=== PATIENT | male | born 1960 | race Caucasian/White ===

== ENCOUNTER → 2016-09-12 | Outpatient (CLI) | payer OTHER, MEDICAID ==
[2016-09-12 10:38] LABS: Urine RBC None Seen /hpf (0 - 3)
[2016-09-12 10:39] LABS: Basophils # (auto) 0 uL; Basophils % (auto) 0.4 % (0.0-2.0); Eosinophils # (auto) 0.3 uL; Eosinophils % (auto) 2.7 % (0.0-7.0); Hematocrit 47.3 % (41.0-53.0); Hemoglobin 15.6 g/dL (13.5-17.5); Lymphocytes # (auto) 4.8 uL; Lymphocytes % (auto) 41.8 % (10.0-50.0); Mean Corpuscular Hemoglobin 28.8 pg (28.0-32.0); Mean Corpuscular Hgb Conc. 32.9 g/dL (32.0-36.0); Mean Corpuscular Volume 87.5 fL (80.0-100.0); Mean Platelet Volume 7.7 fL (7.4-10.4); Monocytes # (auto) 1.4 uL; Monocytes % (auto) 12.3 % (0.0-12.0); Neutrophils # (auto) 4.9 uL; Neutrophils % (auto) 42.8 % (37.0-80.0); Platelet Count (auto) 302 10^3/uL (140-450); Red Cell Distribution Width 14.2 % (11.6-16.0); White Blood Cell 11.5 10^3/uL (4.4-10.8)
[2016-09-12 10:52] LABS: Urine Bilirubin Negative (Negative); Urine Blood Negative /uL (Negative); Urine Color Yellow (Yellow); Urine Glucose Normal (Normal); Urine Hyaline Cast FEW /lpf (0 - 2); Urine Ketone Negative (Negative); Urine Nitrite Negative (Negative); Urine Squamous Epithelial Cell FEW /hpf (<5); Urine Urobilinogen Normal (Negative); Urine pH 5.5 (5.0-8.0)
[2016-09-12 11:05] LABS: Albumin 3.8 g/dL (3.4-5.0); BUN/Creatinine Ratio 16.4; Bilirubin, Total 0.6 mg/dL (0.2-1.0); Calcium 9.4 mg/dL (8.5-10.1); Potassium 4.3 mmol/L (3.5-5.1); Total Protein 8.2 g/dL (6.4-8.2)
== END | disposition home or self-care (01) ==
LOC: LAB 10:18
DX: E78.5 Hyperlipidemia, unspecified (principal); Z12.5 Encounter for screening for malignant neoplasm of prostate; Z85.048 Personal history of other malignant neoplasm of rectum, rectosigmoid junction, and anus
CPT/HCPCS: 36415; 80053; 80061; 81001; 84153; 84443; 85025

== ENCOUNTER 2016-10-23 13:27 | Inpatient (IN) | payer OTHER, MEDICAID, MEDICARE ==
[~2016-10-23] VITALS: Ht 182.9 cm; Wt 129.0 kg
[2016-10-23 14:25] LABS: Basophils # (auto) 0.1 uL; Basophils % (auto) 0.6 % (0.0-2.0); Eosinophils # (auto) 0.2 uL; Eosinophils % (auto) 1.6 % (0.0-7.0); Hematocrit 27.2 % (41.0-53.0); Lymphocytes # (auto) 2.9 uL; Lymphocytes % (auto) 25.6 % (10.0-50.0); Mean Corpuscular Hemoglobin 29.2 pg (28.0-32.0); Mean Corpuscular Hgb Conc. 33.2 g/dL (32.0-36.0); Mean Platelet Volume 8.1 fL (7.4-10.4); Monocytes # (auto) 0.9 uL; Monocytes % (auto) 7.7 % (0.0-12.0); Neutrophils # (auto) 7.2 uL; Neutrophils % (auto) 64.5 % (37.0-80.0); Platelet Count (auto) 258 10^3/uL (140-450); Red Cell Distribution Width 14.6 % (11.6-16.0); White Blood Cell 11.1 10^3/uL (4.4-10.8)
[2016-10-23 14:57] LABS: Albumin 3.3 g/dL (3.4-5.0); BUN/Creatinine Ratio 21.2; Bilirubin, Total 0.2 mg/dL (0.2-1.0); Calcium 8.5 mg/dL (8.5-10.1); Potassium 3.6 mmol/L (3.5-5.1); Total Protein 6.7 g/dL (6.4-8.2)
[2016-10-23 15:36] LABS: INR 0.96 (0.9-1.15); Partial Thromboplastin Time 22.7 sec (22.64-33.71); Prothrombin Time 10.4 sec (9.37-12.3)
[2016-10-23] MEDS ORDERED: SODIUM CHLORIDE 0.9% 1,000 ML IV ONE (22:30)
[2016-10-23] MEDS ORDERED: FAMOTIDINE (10MG/ML) 2ML VL IV ONE (22:30)
[2016-10-23 22:40] LABS: Basophils # (auto) 0.1 uL; Basophils % (auto) 0.6 % (0.0-2.0); DEFINITIVE VIEW TRANSMISSION; Eosinophils # (auto) 0.2 uL; Eosinophils % (auto) 1.4 % (0.0-7.0); Hematocrit 25.1 % (41.0-53.0); Hemoglobin 8.3 g/dL (13.5-17.5); Lymphocytes # (auto) 4.6 uL; Mean Corpuscular Hemoglobin 29.4 pg (28.0-32.0); Mean Corpuscular Hgb Conc. 33.2 g/dL (32.0-36.0); Mean Corpuscular Volume 88.8 fL (80.0-100.0); Mean Platelet Volume 7.9 fL (7.4-10.4); Monocytes # (auto) 1.3 uL; Monocytes % (auto) 10.3 % (0.0-12.0); Neutrophils # (auto) 6.6 uL; Neutrophils % (auto) 51.7 % (37.0-80.0); Platelet Count (auto) 257 10^3/uL (140-450); Red Cell Distribution Width 15.1 % (11.6-16.0); White Blood Cell 12.8 10^3/uL (4.4-10.8)
[2016-10-23 22:51] LABS: INR 0.97 (0.9-1.15); Prothrombin Time 10.5 sec (9.37-12.3)
[2016-10-23 22:59] LABS: Albumin 3.1 g/dL (3.4-5.0); Alkaline Phosphatase 58 U/L (45-117); Amylase 32 U/L (25-115); Anion Gap 11 (5-15); Aspartate Aminotransferase 21 U/L (15-37); BUN/Creatinine Ratio 18.9; Bilirubin, Total 0.3 mg/dL (0.2-1.0); Blood Urea Nitrogen 20 mg/dL (7-18); Calcium 8.4 mg/dL (8.5-10.1); Carbon Dioxide 24 mmol/L (21-32); Chloride 109 mmol/L (98-107); GFR African American 93 mL/min; GFR Non-African American 77 mL/min; Glucose 113 mg/dL (74-106); Potassium 3.6 mmol/L (3.5-5.1); Sodium 144 mmol/L (136-145); Total Protein 6.3 g/dL (6.4-8.2)
[2016-10-24] VITALS (9 sets, daily range): BP systolic 117–134; BP diastolic 59–86
[2016-10-24] MEDS ORDERED: cefTRIAXone 1GM/50ML D5W 50 ML IV ONE (04:30)
[2016-10-24] MEDS ORDERED: metroNIDAZOLE 500MG/100ML 100 ML IV ONE (04:30)
[2016-10-24] MEDS ORDERED: MORPHINE SULF INJ 2 MG/ML SYRINGE 1ML IV PRN ×2 (07:00)
[2016-10-24] MEDS ORDERED: PANTOPRAZOLE SODIUM 40 MG/10 ML VIAL IV ONE (07:00)
[2016-10-24] MEDS ORDERED: HYDROcodone-ACET 5/325MG TAB PO PRN (07:00)
[2016-10-24] MEDS ORDERED: PROCHLORPERAZINE EDISYLATE 5 MG/ML 2ML VIAL IV PRN (07:00)
[2016-10-24] MEDS ORDERED: ACETAMINOPHEN 500 MG TAB PO PRN (07:00)
[2016-10-24] MEDS ORDERED: NITROGLYCERIN 0.4 MG SL TAB SL PRN (07:00)
[2016-10-24] MEDS ORDERED: TEMAZEPAM 15 MG CAP PO PRN (07:00)
[2016-10-24] MEDS ORDERED: LORazepam 0.5 MG TAB PO PRN (07:00)
[2016-10-24] MEDS ORDERED: LACTULOSE 20Gm/30ML SOLN PO PRN (07:00)
[2016-10-24] MEDS: SODIUM CHLORIDE 0.9% 1,000 ML IV SCH ×3 (08:23→22:51)
[2016-10-24] MEDS: PANTOPRAZOLE SODIUM 40 MG/10 ML VIAL IV SCH (11:29)
[2016-10-24 12:24] LABS: Hematocrit 21.3 % (41.0-53.0); Hemoglobin 7.1 g/dL (13.5-17.5)
[2016-10-24] MEDS: metroNIDAZOLE 500MG/100ML 100 ML IV SCH ×2 (14:37→23:28)
[2016-10-24 20:24] LABS: Hematocrit 19.5 % (41.0-53.0)
[2016-10-24 20:38] LABS: Hemoglobin 6.6 g/dL (13.5-17.5)
[2016-10-24] MEDS ORDERED: FUROSEMIDE 20 MG/2 ML VIAL IV ONE (22:30)
[2016-10-25] VITALS (21 sets, daily range): BP systolic 111–165; BP diastolic 61–108
[2016-10-25] MEDS ORDERED: FUROSEMIDE 20 MG/2 ML VIAL IV ONE (03:30)
[2016-10-25] MEDS: metroNIDAZOLE 500MG/100ML 100 ML IV SCH ×3 (06:51→21:53)
[2016-10-25] MEDS: SODIUM CHLORIDE 0.9% 1,000 ML IV SCH ×3 (06:53→21:53)
[2016-10-25 07:12] LABS: Basophils # (auto) 0 uL; Basophils % (auto) 0.5 % (0.0-2.0); Eosinophils # (auto) 0.3 uL; Eosinophils % (auto) 3.2 % (0.0-7.0); Hematocrit 29.1 % (41.0-53.0); Hemoglobin 9.6 g/dL (13.5-17.5); Lymphocytes # (auto) 2.1 uL; Lymphocytes % (auto) 21.6 % (10.0-50.0); Mean Corpuscular Hemoglobin 28.6 pg (28.0-32.0); Mean Corpuscular Hgb Conc. 33.2 g/dL (32.0-36.0); Mean Corpuscular Volume 86.1 fL (80.0-100.0); Mean Platelet Volume 7.7 fL (7.4-10.4); Monocytes # (auto) 0.9 uL; Monocytes % (auto) 8.9 % (0.0-12.0); Neutrophils # (auto) 6.5 uL; Neutrophils % (auto) 65.8 % (37.0-80.0); Platelet Count (auto) 240 10^3/uL (140-450); Red Cell Distribution Width 16.1 % (11.6-16.0); White Blood Cell 9.9 10^3/uL (4.4-10.8)
[2016-10-25 07:30] LABS: Albumin 2.8 g/dL (3.4-5.0); Calcium 7.7 mg/dL (8.5-10.1); Potassium 3.5 mmol/L (3.5-5.1)
[2016-10-25 07:34] LABS: Bilirubin, Total 0.4 mg/dL (0.2-1.0); Total Protein 5.7 g/dL (6.4-8.2)
[2016-10-25] MEDS: PANTOPRAZOLE SODIUM 40 MG/10 ML VIAL IV SCH (09:19)
[2016-10-25] MEDS ORDERED: cloNIDine HCL 0.1 MG TAB PO PRN (13:00)
[2016-10-25] MEDS: Boost Glucose Control 8 Ounces PO SCH (17:37)
[2016-10-25 18:12] LABS: Hematocrit 29.5 % (41.0-53.0); Hemoglobin 9.7 g/dL (13.5-17.5)
[2016-10-25 23:34] LABS: Urine Bilirubin Negative (Negative); Urine Blood Negative /uL (Negative); Urine Color Yellow (Yellow); Urine Glucose Normal (Normal); Urine Ketone Negative (Negative); Urine Nitrite Negative (Negative); Urine RBC 1 /hpf (0 - 3); Urine Urobilinogen Normal (Negative)
[2016-10-26 05:00] VITALS: BP 156/116
[2016-10-26] MEDS: metroNIDAZOLE 500MG/100ML 100 ML IV SCH ×3 (05:33→22:25)
[2016-10-26 06:11] LABS: Basophils # (auto) 0 uL; Basophils % (auto) 0.3 % (0.0-2.0); Eosinophils # (auto) 0.2 uL; Eosinophils % (auto) 1.8 % (0.0-7.0); Hematocrit 29.8 % (41.0-53.0); Hemoglobin 9.9 g/dL (13.5-17.5); Lymphocytes # (auto) 2.2 uL; Lymphocytes % (auto) 20.7 % (10.0-50.0); Mean Corpuscular Hemoglobin 28.9 pg (28.0-32.0); Mean Corpuscular Hgb Conc. 33.2 g/dL (32.0-36.0); Mean Corpuscular Volume 87.1 fL (80.0-100.0); Mean Platelet Volume 7.6 fL (7.4-10.4); Monocytes # (auto) 0.9 uL; Monocytes % (auto) 8.6 % (0.0-12.0); Neutrophils # (auto) 7.3 uL; Neutrophils % (auto) 68.6 % (37.0-80.0); Platelet Count (auto) 267 10^3/uL (140-450); Red Cell Distribution Width 16.2 % (11.6-16.0); White Blood Cell 10.7 10^3/uL (4.4-10.8)
[2016-10-26 06:24] LABS: Calcium 8.2 mg/dL (8.5-10.1); Potassium 3.4 mmol/L (3.5-5.1)
[2016-10-26 06:27] LABS: BUN/Creatinine Ratio 6.4
[2016-10-26 06:29] LABS: Bilirubin, Total 0.4 mg/dL (0.2-1.0); Total Protein 6.1 g/dL (6.4-8.2)
[2016-10-26] MEDS: SODIUM CHLORIDE 0.9% 1,000 ML IV SCH ×3 (06:51→21:07)
[2016-10-26] MEDS: Boost Glucose Control 8 Ounces PO SCH ×3 (08:13→18:00)
[2016-10-26 08:46] VITALS: BP 140/88
[2016-10-26] MEDS: PANTOPRAZOLE SODIUM 40 MG/10 ML VIAL IV SCH (10:11)
[2016-10-26] MEDS ORDERED: POTASSIUM CHLORIDE 8 MEQ TAB PO ONE (12:15)
[2016-10-26 12:45] VITALS: BP 140/93
[2016-10-26] MEDS ORDERED: GOLYTELY 4L KIT PO ONE (13:30)
[2016-10-26 17:09] VITALS: BP 136/88
[2016-10-26 22:00] VITALS: BP 144/100
[2016-10-27 05:00] VITALS: BP 155/88
[2016-10-27] MEDS ORDERED: GOLYTELY 4L KIT PO ONE (06:00)
[2016-10-27] MEDS ORDERED: MAGNESIUM CITRATE SOLUTION 300 ML BTL PO ONE (06:00)
[2016-10-27 06:20] LABS: Basophils # (auto) 0 uL; Basophils % (auto) 0.4 % (0.0-2.0); Eosinophils # (auto) 0.2 uL; Eosinophils % (auto) 1.9 % (0.0-7.0); Hematocrit 30.9 % (41.0-53.0); Hemoglobin 10.1 g/dL (13.5-17.5); Lymphocytes % (auto) 23.8 % (10.0-50.0); Mean Corpuscular Hemoglobin 28.6 pg (28.0-32.0); Mean Corpuscular Hgb Conc. 32.7 g/dL (32.0-36.0); Mean Corpuscular Volume 87.6 fL (80.0-100.0); Mean Platelet Volume 7.2 fL (7.4-10.4); Monocytes # (auto) 0.9 uL; Neutrophils # (auto) 5.4 uL; Neutrophils % (auto) 62.9 % (37.0-80.0); Platelet Count (auto) 302 10^3/uL (140-450); Red Cell Distribution Width 16.5 % (11.6-16.0); White Blood Cell 8.5 10^3/uL (4.4-10.8)
[2016-10-27] MEDS: metroNIDAZOLE 500MG/100ML 100 ML IV SCH ×2 (06:26→14:15)
[2016-10-27] MEDS: SODIUM CHLORIDE 0.9% 1,000 ML IV SCH ×3 (06:51→22:56)
[2016-10-27 06:52] LABS: Albumin 2.9 g/dL (3.4-5.0); BUN/Creatinine Ratio 5.6; Bilirubin, Total 0.4 mg/dL (0.2-1.0); Calcium 8.3 mg/dL (8.5-10.1); Potassium 4.2 mmol/L (3.5-5.1); Total Protein 6.1 g/dL (6.4-8.2)
[2016-10-27 07:19] VITALS: BP 134/96
[2016-10-27 08:00] VITALS: BP 134/96
[2016-10-27] MEDS: Boost Glucose Control 8 Ounces PO SCH ×3 (08:00→18:00)
[2016-10-27] MEDS ORDERED: SODIUM CHLORIDE LOCK 10 ML ONE (08:13)
[2016-10-27] MEDS ORDERED: diphenhdrAMINE HCL 50 MG/1 ML VL ONE (08:13)
[2016-10-27] MEDS: PANTOPRAZOLE SODIUM 40 MG/10 ML VIAL IV SCH (10:12)
[2016-10-27] MEDS: fentaNYL CITRATE 100 MCG/2 ML VL ONE ×2 (11:16→11:20)
[2016-10-27] MEDS: MIDAZOLAM HCL 5 MG/ML-1ML VIAL ONE ×3 (11:16→11:25)
[2016-10-27] MEDS ORDERED: metroNIDAZOLE 500 MG TAB PO ONE (14:30)
[2016-10-27 16:27] VITALS: BP 130/80
[2016-10-27 20:00] VITALS: BP 134/77
[2016-10-27] MEDS: metroNIDAZOLE 500 MG TAB PO SCH (22:04)
[2016-10-28 05:40] VITALS: BP 131/84
[2016-10-28] MEDS: metroNIDAZOLE 500 MG TAB PO SCH (05:57)
[2016-10-28 06:15] LABS: Basophils # (auto) 0 uL; Basophils % (auto) 0.6 % (0.0-2.0); Eosinophils # (auto) 0.3 uL; Eosinophils % (auto) 3.8 % (0.0-7.0); Hematocrit 28.9 % (41.0-53.0); Hemoglobin 9.4 g/dL (13.5-17.5); Lymphocytes # (auto) 1.9 uL; Lymphocytes % (auto) 24.7 % (10.0-50.0); Mean Corpuscular Hemoglobin 28.6 pg (28.0-32.0); Mean Corpuscular Hgb Conc. 32.4 g/dL (32.0-36.0); Mean Corpuscular Volume 88.4 fL (80.0-100.0); Mean Platelet Volume 7.4 fL (7.4-10.4); Monocytes # (auto) 0.7 uL; Monocytes % (auto) 9.6 % (0.0-12.0); Neutrophils # (auto) 4.7 uL; Neutrophils % (auto) 61.3 % (37.0-80.0); Platelet Count (auto) 288 10^3/uL (140-450); Red Cell Distribution Width 16.8 % (11.6-16.0); White Blood Cell 7.6 10^3/uL (4.4-10.8)
[2016-10-28 06:31] LABS: Albumin 2.6 g/dL (3.4-5.0); BUN/Creatinine Ratio 11.2; Calcium 7.9 mg/dL (8.5-10.1); Potassium 3.9 mmol/L (3.5-5.1)
[2016-10-28 06:34] LABS: Bilirubin, Total 0.2 mg/dL (0.2-1.0); Total Protein 5.4 g/dL (6.4-8.2)
[2016-10-28] MEDS: SODIUM CHLORIDE 0.9% 1,000 ML IV SCH (06:51)
[2016-10-28 08:00] VITALS: BP_SYST 138; BP_SYST 159; BP_DIAS 90; BP_DIAS 94
[2016-10-28] MEDS ORDERED: LIDOCAINE VISCOUS 2% 15ML UD ONE (10:03)
[2016-10-28] MEDS ORDERED: SODIUM CHLORIDE LOCK 10 ML ONE (10:03)
[2016-10-28] MEDS ORDERED: fentaNYL CITRATE 100 MCG/2 ML VL ONE (10:04)
[2016-10-28] MEDS ORDERED: MIDAZOLAM HCL 5 MG/ML-1ML VIAL ONE (10:04)
[2016-10-28] MEDS ORDERED: diphenhdrAMINE HCL 50 MG/1 ML VL ONE (10:04)
[2016-10-28] MEDS: PANTOPRAZOLE SODIUM 40 MG/10 ML VIAL IV SCH (10:19)
[2016-10-28] MEDS: Boost Glucose Control 8 Ounces PO SCH ×2 (10:20→12:00)
[2016-10-28 11:21] VITALS: BP 140/84
[2016-10-28] MEDS ORDERED: MIDAZOLAM HCL 5 MG/ML-1ML VIAL IV ONE ×2 (11:56→11:59)
[2016-10-28] MEDS ORDERED: fentaNYL CITRATE 100 MCG/2 ML VL IV ONE ×2 (11:56→11:59)
[2016-10-28] MEDS ORDERED: LIDOCAINE VISCOUS 2% 15ML UD MT ONE (11:56)
[2016-10-28 14:06] VITALS: BP 139/96
[2016-10-28 14:15] VITALS: BP 139/96
[2016-10-28] MEDS ORDERED: PANTOPRAZOLE 40 MG TAB PO SCH (22:00)
== END 2016-10-28 14:45 | disposition home or self-care (01) | DRG 378 ==
LOC: ER 13:29 → TELE 13:30 → TELE-WESTW 10-24 10:44
PROVIDERS: ADMIT Internal Medicine; ATTEND Internal Medicine
PROC: 30233K1 Transfusion of Nonautologous Frozen Plasma into Peripheral Vein, Percutaneous Approach (ICD-10-PCS; principal; 2016-10-25)
PROC: 30233N1 Transfusion of Nonautologous Red Blood Cells into Peripheral Vein, Percutaneous Approach (ICD-10-PCS; 2016-10-25)
PROC: 0DJD8ZZ Inspection of Lower Intestinal Tract, Via Natural or Artificial Opening Endoscopic (ICD-10-PCS; 2016-10-27)
PROC: 0DB68ZX Excision of Stomach, Via Natural or Artificial Opening Endoscopic, Diagnostic (ICD-10-PCS; 2016-10-27)
DX: K26.4 Chronic or unspecified duodenal ulcer with hemorrhage (principal); E44.0 Moderate protein-calorie malnutrition; E11.21 Type 2 diabetes mellitus with diabetic nephropathy; E11.22 Type 2 diabetes mellitus with diabetic chronic kidney disease; E66.9 Obesity, unspecified; E86.0 Dehydration; I12.9 Hypertensive chronic kidney disease with stage 1 through stage 4 chronic kidney disease, or unspecified chronic kidney disease; J45.909 Unspecified asthma, uncomplicated; N18.2 Chronic kidney disease, stage 2 (mild); Z82.49 Family history of ischemic heart disease and other diseases of the circulatory system; Z83.3 Family history of diabetes mellitus; G89.29 Other chronic pain; M19.90 Unspecified osteoarthritis, unspecified site; E11.65 Type 2 diabetes mellitus with hyperglycemia; K40.20 Bilateral inguinal hernia, without obstruction or gangrene, not specified as recurrent; K76.89 Other specified diseases of liver; D72.829 Elevated white blood cell count, unspecified; Z68.38 Body mass index [BMI] 38.0-38.9, adult; K57.30 Diverticulosis of large intestine without perforation or abscess without bleeding; K64.8 Other hemorrhoids; D63.8 Anemia in other chronic diseases classified elsewhere; K29.70 Gastritis, unspecified, without bleeding
CPT/HCPCS: 36415; 36430; 43239; 45378; 71010; 74176; 80053; 80320; 81001; 82150; 82270; 82378; 83690; 85014; 85018; 85025; 85045; 85610; 85652; 85730; 86141; 86850; 86900; 86901; 86920; 87493; 96361; 96365; 96368; 96375; C9113; J0696; J2250; J3490

== ENCOUNTER → 2017-08-21 | Outpatient (CLI) | payer OTHER, MEDICAID, MEDICARE ==
[~2017-08-21] MED LIST: ALBUTEROL SULF 2.5 MG/0.5ML(0.5%) NEB SOLN ONE
== END | disposition home or self-care (01) ==
LOC: RT 08:28
PROVIDERS: ATTEND Internal Medicine Pulmonary Disease
DX: J45.998 Other asthma (principal)
CPT/HCPCS: 94060; 94640

== ENCOUNTER 2017-11-27 11:06 | Inpatient (IN) | payer OTHER, MEDICAID ==
[~2017-11-27] VITALS: Ht 182.9 cm; Wt 139.3 kg
[2017-11-27] MEDS ORDERED: SODIUM CHLORIDE 0.9% 1,000 ML IV ONE (11:28)
[2017-11-27] MEDS ORDERED: ALBUTEROL SULF 2.5 MG/0.5ML(0.5%) NEB SOLN HHN ONE (11:30)
[2017-11-27] MEDS ORDERED: methylPREDNISolone SOD SUCC 125 MG/2 ML VL IV ONE (11:30)
[2017-11-27] MEDS ORDERED: IPRATROPIUM BROM 0.5 MG/2.5ML INH SOL HHN ONE (11:30)
[2017-11-27 12:01] LABS: Basophils # (auto) 0.1 uL; Basophils % (auto) 0.7 % (0.0-2.0); Eosinophils # (auto) 0.3 uL; Eosinophils % (auto) 2.3 % (0.0-7.0); Hematocrit 47.2 % (41.0-53.0); Hemoglobin 15.4 g/dL (13.5-17.5); Lymphocytes # (auto) 2.2 uL; Mean Corpuscular Hgb Conc. 32.6 g/dL (32.0-36.0); Mean Corpuscular Volume 89.1 fL (80.0-100.0); Monocytes # (auto) 1.5 uL; Monocytes % (auto) 11.1 % (0.0-12.0); Neutrophils # (auto) 9.6 uL; Neutrophils % (auto) 69.9 % (37.0-80.0); Platelet Count (auto) 246 10^3/uL (140-450); Red Blood Cells 5.29 10^6/uL (4.5-5.90); Red Cell Distribution Width 14.9 % (11.8-14.3); White Blood Cell 13.8 10^3/uL (4.4-10.8)
[2017-11-27 12:18] LABS: Albumin 3.2 g/dL (3.4-5.0); BUN/Creatinine Ratio 9.2; Bilirubin, Total 0.6 mg/dL (0.2-1.0); Calcium 8.8 mg/dL (8.5-10.1); Magnesium 2.1 mg/dL (1.6-2.6); Potassium 5.3 mmol/L (3.5-5.1); Total Protein 8.4 g/dL (6.4-8.2)
[2017-11-27] MEDS ORDERED: NITROGLYCERIN 0.4 MG SL TAB SL PRN (12:30)
[2017-11-27] MEDS ORDERED: LACTULOSE 20Gm/30ML SOLN PO PRN (12:30)
[2017-11-27] MEDS ORDERED: ALBUTEROL SULF 2.5 MG/0.5ML(0.5%) NEB SOLN NEB PRN (12:30)
[2017-11-27] MEDS ORDERED: MORPHINE SULFATE 4 MG/ML SYR/VIAL IV PRN (12:30)
[2017-11-27] MEDS ORDERED: DEXTROSE (50%) 50ML SYRG IV PRN (12:30)
[2017-11-27] MEDS ORDERED: ACETAMINOPHEN 500 MG TAB PO PRN (12:30)
[2017-11-27] MEDS ORDERED: FUROSEMIDE 40 MG/4 ML VIAL IV ONE ×2 (12:45)
[2017-11-27] MEDS ORDERED: SODIUM POLYSTYRENE SULF 15GM/60ML SUSP PO ONE (12:45)
[2017-11-27] MEDS: cefTRIAXone 1GM/10ml IVPUSH 10 ML IV SCH (12:55)
[2017-11-27] MEDS: ACCU-CHEK COMFORT CURVE STRIP VI SCH ×3 (13:04→21:51)
[2017-11-27] MEDS: AZITHROMYCIN 500MG/ 250ML 250 ML IV SCH (13:04)
[2017-11-27 13:08] VITALS: BP 204/124
[2017-11-27] MEDS: InsuLIN REG 1unit/0.01ml Soln (100units/ml) SC SCH ×3 (13:11→21:52)
[2017-11-27] MEDS: ENOXAPARIN SOD 40 MG/0.4 ML SYRINGE SC SCH (13:12)
[2017-11-27] MEDS: CARVEDILOL 3.125 MG TAB PO SCH ×2 (13:13→21:44)
[2017-11-27 16:39] LABS: BUN/Creatinine Ratio 7.6; Calcium 8.9 mg/dL (8.5-10.1); Potassium 4.2 mmol/L (3.5-5.1)
[2017-11-27] MEDS: methylPREDNISolone SOD SUCC 40 MG/ML VL IV SCH (17:41)
[2017-11-27] MEDS: IPRATROPIUM BROM 0.5 MG/2.5ML INH SOL NEB SCH (18:00)
[2017-11-27 18:48] LABS: Urine Bacteria NONE SEEN /hpf (None Seen); Urine Blood Negative /uL (Negative); Urine Mucus FEW (None Seen); Urine Specific Gravity 1.009 (1.001-1.035); Urine Sperm PRESENT /hpf (None Seen); Urine WBC <1 /hpf (0 - 3)
[2017-11-27] MEDS: ALBUTEROL SULF 2.5 MG/0.5ML(0.5%) NEB SOLN NEB SCH (19:50)
[2017-11-28] MEDS: methylPREDNISolone SOD SUCC 40 MG/ML VL IV SCH ×3 (00:25→22:14)
[2017-11-28 01:19] VITALS: BP 131/84
[2017-11-28 04:00] VITALS: BP 125/82
[2017-11-28 06:09] LABS: Basophils # (auto) 0 uL; Basophils % (auto) 0.1 % (0.0-2.0); Eosinophils # (auto) 0 uL; Eosinophils % (auto) 0.1 % (0.0-7.0); Hematocrit 45.8 % (41.0-53.0); Hemoglobin 15.1 g/dL (13.5-17.5); Lymphocytes # (auto) 1.4 uL; Lymphocytes % (auto) 10.7 % (10.0-50.0); Mean Corpuscular Hemoglobin 29.1 pg (28.0-32.0); Mean Corpuscular Hgb Conc. 32.9 g/dL (32.0-36.0); Mean Corpuscular Volume 88.4 fL (80.0-100.0); Monocytes # (auto) 0.6 uL; Monocytes % (auto) 4.7 % (0.0-12.0); Neutrophils # (auto) 10.8 uL; Neutrophils % (auto) 84.4 % (37.0-80.0); Nucleated Red Blood Cells % 0.2 %; Platelet Count (auto) 243 10^3/uL (140-450); Red Blood Cells 5.18 10^6/uL (4.5-5.90); Red Cell Distribution Width 14.5 % (11.8-14.3); White Blood Cell 12.7 10^3/uL (4.4-10.8)
[2017-11-28] MEDS: ACCU-CHEK COMFORT CURVE STRIP VI SCH ×4 (06:17→22:15)
[2017-11-28] MEDS: InsuLIN REG 1unit/0.01ml Soln (100units/ml) SC SCH ×4 (06:18→22:15)
[2017-11-28] MEDS: ALBUTEROL SULF 2.5 MG/0.5ML(0.5%) NEB SOLN NEB SCH ×4 (06:38→18:56)
[2017-11-28] MEDS: IPRATROPIUM BROM 0.5 MG/2.5ML INH SOL NEB SCH ×4 (06:38→18:55)
[2017-11-28 06:43] LABS: BUN/Creatinine Ratio 14.4; Bilirubin, Total 0.3 mg/dL (0.2-1.0); Calcium 8.9 mg/dL (8.5-10.1); Potassium 3.8 mmol/L (3.5-5.1)
[2017-11-28 08:13] VITALS: BP 144/95
[2017-11-28] MEDS: cefTRIAXone 1GM/10ml IVPUSH 10 ML IV SCH (09:11)
[2017-11-28] MEDS: AZITHROMYCIN 500MG/ 250ML 250 ML IV SCH (10:00)
[2017-11-28] MEDS: CARVEDILOL 3.125 MG TAB PO SCH ×2 (10:01→22:15)
[2017-11-28] MEDS: ENOXAPARIN SOD 40 MG/0.4 ML SYRINGE SC SCH (10:01)
[2017-11-28] MEDS ORDERED: KETOROLAC TROMETH 30 MG/ML 1ML VIAL IV PRN (10:45)
[2017-11-28] MEDS: PROMETHAZINE W/CODEINE 5 ML ORAL SYRUP PO PRN (11:07)
[2017-11-28] MEDS ORDERED: PANTOPRAZOLE 40 MG TAB PO ONE (11:30)
[2017-11-28 11:58] VITALS: BP 122/79
[2017-11-28] MEDS: BUDESONIDE (INHALATION) 0.5 MG/2 ML NEB NEB SCH ×2 (12:00→18:56)
[2017-11-28 16:00] VITALS: BP 128/69
[2017-11-28 21:49] VITALS: BP 145/80
[2017-11-28] MEDS ORDERED: methylPREDNISolone SOD SUCC 125 MG/2 ML VL IV SCH (22:00)
[2017-11-28] MEDS: TEMAZEPAM 15 MG CAP PO PRN (22:15)
[2017-11-29] MEDS: MORPHINE SULFATE 4 MG/ML SYR/VIAL IV PRN ×3 (01:21→20:41)
[2017-11-29] MEDS: PROMETHAZINE HCL 25 MG/ML 1ML IV PRN ×3 (01:22→20:41)
[2017-11-29] MEDS: IPRATROPIUM BROM 0.5 MG/2.5ML INH SOL NEB SCH ×5 (01:29→23:37)
[2017-11-29] MEDS: ALBUTEROL SULF 2.5 MG/0.5ML(0.5%) NEB SOLN NEB SCH ×5 (01:30→23:38)
[2017-11-29 04:35] VITALS: BP 122/74
[2017-11-29] MEDS: ACCU-CHEK COMFORT CURVE STRIP VI SCH ×4 (06:18→22:07)
[2017-11-29] MEDS: InsuLIN REG 1unit/0.01ml Soln (100units/ml) SC SCH ×4 (06:21→22:17)
[2017-11-29] MEDS: BUDESONIDE (INHALATION) 0.5 MG/2 ML NEB NEB SCH ×2 (06:26→18:36)
[2017-11-29 07:28] LABS: Basophils # (auto) 0 uL; Basophils % (auto) 0.1 % (0.0-2.0); Eosinophils # (auto) 0 uL; Hematocrit 44.3 % (41.0-53.0); Hemoglobin 14.1 g/dL (13.5-17.5); Lymphocytes # (auto) 1.1 uL; Lymphocytes % (auto) 6.7 % (10.0-50.0); Mean Corpuscular Hemoglobin 28.8 pg (28.0-32.0); Mean Corpuscular Volume 90.2 fL (80.0-100.0); Monocytes # (auto) 1.1 uL; Monocytes % (auto) 6.6 % (0.0-12.0); Neutrophils # (auto) 14.7 uL; Neutrophils % (auto) 86.6 % (37.0-80.0); Nucleated Red Blood Cells % 0.1 %; Platelet Count (auto) 252 10^3/uL (140-450); Red Blood Cells 4.91 10^6/uL (4.5-5.90); Red Cell Distribution Width 14.4 % (11.8-14.3); White Blood Cell 16.9 10^3/uL (4.4-10.8)
[2017-11-29 07:39] LABS: BUN/Creatinine Ratio 23.2; Calcium 8.9 mg/dL (8.5-10.1); Potassium 4.4 mmol/L (3.5-5.1)
[2017-11-29] MEDS: PROMETHAZINE W/CODEINE 5 ML ORAL SYRUP PO PRN ×2 (08:01→22:07)
[2017-11-29 09:00] VITALS: BP 115/101
[2017-11-29] MEDS: cefTRIAXone 1GM/10ml IVPUSH 10 ML IV SCH (10:00)
[2017-11-29] MEDS: PANTOPRAZOLE 40 MG TAB PO SCH (10:00)
[2017-11-29] MEDS: ENOXAPARIN SOD 40 MG/0.4 ML SYRINGE SC SCH (10:00)
[2017-11-29] MEDS: AZITHROMYCIN 500MG/ 250ML 250 ML IV SCH (10:00)
[2017-11-29] MEDS: CARVEDILOL 3.125 MG TAB PO SCH ×2 (10:01→22:17)
[2017-11-29] MEDS: methylPREDNISolone SOD SUCC 40 MG/ML VL IV SCH ×2 (10:02→22:17)
[2017-11-29 13:00] VITALS: BP 129/100
[2017-11-29 17:00] VITALS: BP 135/114
[2017-11-29 22:00] VITALS: BP 162/85
[2017-11-29] MEDS: LORazepam 0.5 MG TAB PO PRN (22:17)
[2017-11-30] MEDS: HYDROcodone-ACET 5/325MG TAB PO PRN ×3 (00:01→18:07)
[2017-11-30] MEDS: TEMAZEPAM 15 MG CAP PO PRN ×2 (01:08→22:06)
[2017-11-30] MEDS: MORPHINE SULFATE 4 MG/ML SYR/VIAL IV PRN ×4 (01:08→23:53)
[2017-11-30 05:00] VITALS: BP 148/70
[2017-11-30] MEDS: IPRATROPIUM BROM 0.5 MG/2.5ML INH SOL NEB SCH ×3 (06:29→19:01)
[2017-11-30] MEDS: ALBUTEROL SULF 2.5 MG/0.5ML(0.5%) NEB SOLN NEB SCH ×3 (06:29→19:01)
[2017-11-30] MEDS: BUDESONIDE (INHALATION) 0.5 MG/2 ML NEB NEB SCH ×2 (06:29→19:01)
[2017-11-30] MEDS: ACCU-CHEK COMFORT CURVE STRIP VI SCH ×4 (06:45→22:07)
[2017-11-30 06:48] LABS: Basophils # (auto) 0 uL; Basophils % (auto) 0.1 % (0.0-2.0); Eosinophils # (auto) 0 uL; Hematocrit 42.7 % (41.0-53.0); Lymphocytes # (auto) 1.4 uL; Lymphocytes % (auto) 10.5 % (10.0-50.0); Mean Corpuscular Hemoglobin 29.2 pg (28.0-32.0); Mean Corpuscular Hgb Conc. 32.9 g/dL (32.0-36.0); Mean Corpuscular Volume 88.7 fL (80.0-100.0); Monocytes # (auto) 0.9 uL; Monocytes % (auto) 6.6 % (0.0-12.0); Neutrophils # (auto) 11.1 uL; Neutrophils % (auto) 82.8 % (37.0-80.0); Platelet Count (auto) 258 10^3/uL (140-450); Red Blood Cells 4.81 10^6/uL (4.5-5.90); Red Cell Distribution Width 14.6 % (11.8-14.3); White Blood Cell 13.5 10^3/uL (4.4-10.8)
[2017-11-30] MEDS: InsuLIN REG 1unit/0.01ml Soln (100units/ml) SC SCH ×4 (06:52→22:07)
[2017-11-30] MEDS: PROMETHAZINE HCL 25 MG/ML 1ML IV PRN ×3 (06:52→23:54)
[2017-11-30 07:00] LABS: Albumin 3.1 g/dL (3.4-5.0); BUN/Creatinine Ratio 25.9; Bilirubin, Total 0.2 mg/dL (0.2-1.0); Calcium 8.7 mg/dL (8.5-10.1); Potassium 4.5 mmol/L (3.5-5.1); Total Protein 7.4 g/dL (6.4-8.2)
[2017-11-30 09:00] VITALS: BP 136/85
[2017-11-30] MEDS: cefTRIAXone 1GM/10ml IVPUSH 10 ML IV SCH (09:22)
[2017-11-30] MEDS: PROMETHAZINE W/CODEINE 5 ML ORAL SYRUP PO PRN (09:23)
[2017-11-30] MEDS: ENOXAPARIN SOD 40 MG/0.4 ML SYRINGE SC SCH (09:24)
[2017-11-30] MEDS: CARVEDILOL 3.125 MG TAB PO SCH ×2 (09:24→22:07)
[2017-11-30] MEDS: PANTOPRAZOLE 40 MG TAB PO SCH (09:24)
[2017-11-30] MEDS: AZITHROMYCIN 500MG/ 250ML 250 ML IV SCH (09:24)
[2017-11-30] MEDS: methylPREDNISolone SOD SUCC 40 MG/ML VL IV SCH ×2 (09:25→22:06)
[2017-11-30 10:27] VITALS: BP 136/85
[2017-11-30 13:00] VITALS: BP_SYST 128; BP_SYST 139; BP_DIAS 86; BP_DIAS 91
[2017-11-30] MEDS: LORazepam 0.5 MG TAB PO PRN (14:21)
[2017-11-30 17:00] VITALS: BP 153/97
[2017-11-30] MEDS ORDERED: SODIUM CHLORIDE 0.9% 1,000 ML IV ONE (18:30)
[2017-11-30 22:12] VITALS: BP 123/77
[2017-12-01] MEDS: IPRATROPIUM BROM 0.5 MG/2.5ML INH SOL NEB SCH ×3 (00:21→11:31)
[2017-12-01] MEDS: ALBUTEROL SULF 2.5 MG/0.5ML(0.5%) NEB SOLN NEB SCH ×3 (00:21→11:31)
[2017-12-01] MEDS: HYDROcodone-ACET 5/325MG TAB PO PRN ×2 (03:13→10:54)
[2017-12-01 04:58] VITALS: BP 148/89
[2017-12-01] MEDS: BUDESONIDE (INHALATION) 0.5 MG/2 ML NEB NEB SCH (05:38)
[2017-12-01 06:09] LABS: Basophils # (auto) 0.1 uL; Basophils % (auto) 0.4 % (0.0-2.0); Eosinophils # (auto) 0 uL; Hematocrit 44.6 % (41.0-53.0); Hemoglobin 14.8 g/dL (13.5-17.5); Lymphocytes # (auto) 1.5 uL; Lymphocytes % (auto) 13.2 % (10.0-50.0); Mean Corpuscular Hemoglobin 29.4 pg (28.0-32.0); Mean Corpuscular Hgb Conc. 33.1 g/dL (32.0-36.0); Mean Corpuscular Volume 88.8 fL (80.0-100.0); Monocytes # (auto) 0.9 uL; Monocytes % (auto) 7.9 % (0.0-12.0); Neutrophils # (auto) 8.9 uL; Neutrophils % (auto) 78.5 % (37.0-80.0); Nucleated Red Blood Cells % 0.1 %; Platelet Count (auto) 260 10^3/uL (140-450); Red Blood Cells 5.03 10^6/uL (4.5-5.90); Red Cell Distribution Width 14.2 % (11.8-14.3); White Blood Cell 11.4 10^3/uL (4.4-10.8)
[2017-12-01] MEDS: ACCU-CHEK COMFORT CURVE STRIP VI SCH (06:23)
[2017-12-01] MEDS: InsuLIN REG 1unit/0.01ml Soln (100units/ml) SC SCH (06:27)
[2017-12-01 06:28] LABS: Albumin 3.3 g/dL (3.4-5.0); BUN/Creatinine Ratio 24.7; Bilirubin, Total 0.4 mg/dL (0.2-1.0); Calcium 8.8 mg/dL (8.5-10.1); Potassium 4.7 mmol/L (3.5-5.1); Total Protein 7.8 g/dL (6.4-8.2)
[2017-12-01] MEDS: MORPHINE SULFATE 4 MG/ML SYR/VIAL IV PRN (06:28)
[2017-12-01 08:26] VITALS: BP 165/87
[2017-12-01] MEDS: cefTRIAXone 1GM/10ml IVPUSH 10 ML IV SCH (09:39)
[2017-12-01] MEDS: ENOXAPARIN SOD 40 MG/0.4 ML SYRINGE SC SCH (09:40)
[2017-12-01] MEDS: PANTOPRAZOLE 40 MG TAB PO SCH (09:40)
[2017-12-01] MEDS: methylPREDNISolone SOD SUCC 40 MG/ML VL IV SCH (09:40)
[2017-12-01] MEDS: AZITHROMYCIN 500MG/ 250ML 250 ML IV SCH (09:40)
[2017-12-01] MEDS: CARVEDILOL 3.125 MG TAB PO SCH (09:41)
== END 2017-12-01 11:55 | disposition home or self-care (01) | DRG 871 ==
LOC: ER 11:06 → TELE 11:07 → DOU IN ICU 23:52 → TELE-EAST 11-28 20:18 → EAST 12-01 01:05
PROVIDERS: ADMIT Internal Medicine; ATTEND Family Medicine
PROC: 5A09357 Assistance with Respiratory Ventilation, Less than 24 Consecutive Hours, Continuous Positive Airway Pressure (ICD-10-PCS; principal; 2017-11-27)
DX: A41.9 Sepsis, unspecified organism (principal); J18.9 Pneumonia, unspecified organism; J96.20 Acute and chronic respiratory failure, unspecified whether with hypoxia or hypercapnia; J90 Pleural effusion, not elsewhere classified; E44.0 Moderate protein-calorie malnutrition; Z99.81 Dependence on supplemental oxygen; J44.1 Chronic obstructive pulmonary disease with (acute) exacerbation; Z68.41 Body mass index [BMI] 40.0-44.9, adult; J44.0 Chronic obstructive pulmonary disease with (acute) lower respiratory infection; E11.9 Type 2 diabetes mellitus without complications; E66.9 Obesity, unspecified; E78.5 Hyperlipidemia, unspecified; F12.90 Cannabis use, unspecified, uncomplicated; E66.01 Morbid (severe) obesity due to excess calories; E87.5 Hyperkalemia; I10 Essential (primary) hypertension; K57.90 Diverticulosis of intestine, part unspecified, without perforation or abscess without bleeding; Z82.49 Family history of ischemic heart disease and other diseases of the circulatory system; Z83.3 Family history of diabetes mellitus
CPT/HCPCS: 36415; 71045; 71046; 71250; 74176; 76604; 80048; 80053; 80061; 81001; 82550; 82962; 83036; 83605; 83735; 83880; 84443; 84484; 85025; 87040; 87070; 87081; 87086; 87205; 87804; 93005; 93306; 94640; 94660; 96361; 96374; 96375; J1815; J1885

== ENCOUNTER → 2018-04-29 | Outpatient (CLI) | payer OTHER, MEDICAID ==
[2018-04-29 13:37] LABS: Urine Bacteria FEW /hpf (None Seen); Urine Blood Negative /uL (Negative); Urine Specific Gravity 1.013 (1.001-1.035); Urine WBC 4 /hpf (0 - 3)
[2018-04-29 14:00] LABS: Basophils # (auto) 0.1 uL; Eosinophils # (auto) 0.2 uL; Hemoglobin 17.7 g/dL (13.5-17.5); Lymphocytes # (auto) 2.2 uL; Monocytes # (auto) 0.9 uL; Neutrophils # (auto) 6.6 uL
[2018-04-29 14:01] LABS: Eosinophils % (auto) 2.3 % (0.0-7.0); Lymphocytes % (auto) 21.7 % (10.0-50.0); Mean Corpuscular Hemoglobin 30.1 pg (28.0-32.0); Mean Corpuscular Hgb Conc. 33.4 g/dL (32.0-36.0); Mean Corpuscular Volume 90.2 fL (80.0-100.0); Monocytes % (auto) 9.2 % (0.0-12.0); Neutrophils % (auto) 65.8 % (37.0-80.0); Nucleated Red Blood Cells % 0.1 %; Platelet Count (auto) 234 10^3/uL (140-450); Red Blood Cells 5.88 10^6/uL (4.5-5.90); Red Cell Distribution Width 13.7 % (11.8-14.3)
[2018-04-29 14:13] LABS: Albumin 3.4 g/dL (3.4-5.0); Calcium 9.5 mg/dL (8.5-10.1); Potassium 4.2 mmol/L (3.5-5.1)
[2018-04-29 14:21] LABS: BUN/Creatinine Ratio 8.5; Total Protein 8.2 g/dL (6.4-8.2)
[2018-04-29 14:25] LABS: Bilirubin, Total 0.5 mg/dL (0.2-1.0)
== END | disposition home or self-care (01) ==
LOC: LAB 13:19
PROVIDERS: ATTEND Physician Assistant
DX: Z12.5 Encounter for screening for malignant neoplasm of prostate (principal); I13.0 Hypertensive heart and chronic kidney disease with heart failure and stage 1 through stage 4 chronic kidney disease, or unspecified chronic kidney disease; E11.22 Type 2 diabetes mellitus with diabetic chronic kidney disease; I50.9 Heart failure, unspecified; N18.2 Chronic kidney disease, stage 2 (mild); E11.21 Type 2 diabetes mellitus with diabetic nephropathy; E78.5 Hyperlipidemia, unspecified; J44.9 Chronic obstructive pulmonary disease, unspecified
CPT/HCPCS: 36415; 80053; 80061; 81001; 83036; 84153; 85025

== ENCOUNTER → 2018-06-24 | Outpatient (CLI) | payer MEDICAID, OTHER | END | disposition home or self-care (01) | LOC: XYW 09:36 | PROVIDERS: ATTEND Internal Medicine | DX: I11.0 Hypertensive heart disease with heart failure (principal); I50.9 Heart failure, unspecified | CPT/HCPCS: 93306 ==

== ENCOUNTER → 2018-07-01 | Outpatient (CLI) | payer MEDICAID, OTHER ==
[2018-07-01 08:42] LABS: Urine Bacteria FEW /hpf (None Seen); Urine Blood Negative /uL (Negative); Urine Mucus FEW (None Seen); Urine Specific Gravity 1.014 (1.001-1.035); Urine WBC 1 /hpf (0 - 3)
[2018-07-01 08:46] LABS: Eosinophils # (auto) 0.2 uL; Monocytes # (auto) 1.1 uL; Nucleated Red Blood Cells % 0.1 %; Platelet Count (auto) 264 10^3/uL (140-450); White Blood Cell 10.5 10^3/uL (4.4-10.8)
[2018-07-01 08:48] LABS: Basophils # (auto) 0 uL; Basophils % (auto) 0.3 % (0.0-2.0); Eosinophils % (auto) 2.2 % (0.0-7.0); Hematocrit 54.5 % (41.0-53.0); Hemoglobin 17.9 g/dL (13.5-17.5); Lymphocytes # (auto) 3.4 uL; Lymphocytes % (auto) 32.4 % (10.0-50.0); Mean Corpuscular Hemoglobin 28.9 pg (28.0-32.0); Mean Corpuscular Hgb Conc. 32.8 g/dL (32.0-36.0); Monocytes % (auto) 10.2 % (0.0-12.0); Neutrophils # (auto) 5.8 uL; Neutrophils % (auto) 54.9 % (37.0-80.0); Red Blood Cells 6.19 10^6/uL (4.5-5.90); Red Cell Distribution Width 14.6 % (11.8-14.3)
[2018-07-01 09:18] LABS: Albumin 3.7 g/dL (3.4-5.0); BUN/Creatinine Ratio 18.8; Calcium 9.6 mg/dL (8.5-10.1); Potassium 4.6 mmol/L (3.5-5.1)
[2018-07-01 09:21] LABS: Bilirubin, Total 0.9 mg/dL (0.2-1.0); Total Protein 8.2 g/dL (6.4-8.2)
[2018-07-01 09:26] LABS: Free T4 (Free Thyroxine) 1.06 ng/dL (0.89-1.76)
[2018-07-01 09:27] LABS: Prostate Specific Antigen 0.83 ng/mL (0.0-4.0); T3 Total 1.09 ng/mL (0.60-1.81)
== END | disposition home or self-care (01) ==
LOC: XY 07:41
PROVIDERS: ATTEND Internal Medicine
DX: I11.0 Hypertensive heart disease with heart failure (principal); I50.9 Heart failure, unspecified
CPT/HCPCS: 36415; 80053; 80061; 81001; 82306; 82607; 83036; 84153; 84439; 84443; 84480; 85025

== ENCOUNTER 2018-11-24 13:55 | Inpatient (IN) | payer OTHER | END 2018-11-27 16:00 | disposition home or self-care (01) | LOC: ER 13:55 → TELE 20:19 → TELE-WESTW 21:24 | DX: J96.20 Acute and chronic respiratory failure, unspecified whether with hypoxia or hypercapnia (principal); J18.1 Lobar pneumonia, unspecified organism; I50.23 Acute on chronic systolic (congestive) heart failure; J44.1 Chronic obstructive pulmonary disease with (acute) exacerbation; J44.0 Chronic obstructive pulmonary disease with (acute) lower respiratory infection ==

== ENCOUNTER 2018-11-28 13:05 | Emergency (ER) | payer OTHER ==
[~2018-11-28] VITALS: Ht 182.9 cm; Wt 136.1 kg
[~2018-11-28 13:05] MED LIST changes: -ALBUTEROL SULF 2.5 MG/0.5ML(0.5%) NEB SOLN ONE; +ATOR10TA52 PO; +FURO20TA PO; +LISI-285 PO; +METF-370 PO; +POTA8TAB2 PO; +ZOLP10TA6 PO
[2018-11-28] MEDS ORDERED: EPINEPHrine HCL 1 MG/10 ML SYRG IV ONE (13:06)
[2018-11-28] MEDS ORDERED: CALCIUM CHLOR(10%) 100MG/ML 10ML SYRINGE IV ONE (13:06)
[2018-11-28] MEDS ORDERED: SODIUM BICARBONATE 8.4% INJ 50ML SYRINGE IV ONE (13:06)
== END 2018-11-28 17:57 | disposition expired ==
LOC: ER 13:05 → EDBD 13:05 → ER 17:57
DX: I46.9 Cardiac arrest, cause unspecified (principal); J44.9 Chronic obstructive pulmonary disease, unspecified; E11.9 Type 2 diabetes mellitus without complications; I10 Essential (primary) hypertension; E78.5 Hyperlipidemia, unspecified; Z91.018 Allergy to other foods
CPT/HCPCS: 92950; 99285; J0171